=== PATIENT | male | born 1950 | race Caucasian/White ===

== ENCOUNTER 2018-06-15 05:36 | Day surgery (SDC) | payer MEDICARE, OTHER, SELFPAY ==
[2018-06-15 06:17] VITALS: BP 137/68; PULSE 67; RESP 16; TEMP 37.3; O2SAT 100; BMI 37.1
[2018-06-15 06:41] LABS: Bedside Glucose 158 mg/dL (70-110)
--- NOTE | 2018-06-15 07:21 | PCM.HP.STD ---
Problem List (1) Screening for colon cancer Status: Acute History of Present Illness Date of Admission: 06/15/18 The patient is a 67 year old M who presents for screening colonoscopy. Past Medical History Past Medical History (Chronic Problems): Chronic Problems RYAN (obstructive sleep apnea) (Chronic) Allergies piroxicam [From Feldene] Allergy (Verified 06/15/18 06:10) Rash amlodipine Adverse Reaction (Verified 06/15/18 06:10) Swelling lisinopril Adverse Reaction (Verified 06/15/18 06:10) Other Home Medications: Ambulatory Orders Medication Instructions Recorded Aspirin [Aspirin, Baby] 81 mg PO DAILY@0800 08/21/15 Carvedilol 6.25 mg PO BID 08/21/15 Cholecalciferol (VIT D3) [Vitamin 3,000 unit PO DAILY 08/21/15 D3] Folic Acid 1 mg PO BID 08/21/15 Hydrochlorothiazide 25 mg PO DAILY 08/21/15 Losartan Potassium 100 mg PO DAILY 08/21/15 Metformin [Metformin HCl] 500 mg PO BID 08/21/15 Acetaminophen [Tylenol Tablet] 650 mg PO Q6H PRN PRN #0 tablet 08/24/15 Atorvastatin Calcium [Lipitor] 10 mg PO QHS 06/11/18 Cyanocobalamin [Vitamin B12] 500 mcg PO DAILY@0800 06/11/18 Lysine 1,000 mg PO DAILY 06/11/18 Multivitamin [Multiple Vitamins] 1 each PO DAILY 06/11/18 Cyanocobalamin (Vitamin B-12) 1,000 mcg PO 06/15/18 [Vitamin B-12] Pyridoxine HCl [Vitamin B-6] 100 mg PO DAILY 06/15/18 Vitamin B12 06/15/18 Smoking Status: Never smoker Tobacco Use: Non-smoker - *Family History Maternal History Items: No pertinent history Review of Systems Cardiovascular: Denies: Chest Pain, Chest Pressure, Chest Tightness, Palpitations Respiratory: Denies: Cough, Hemoptysis, Shortness of breath at rest, Shortness of breath upon exertion, Wheezing Gastrointestinal: Denies: Abdominal Pain, Constipation, Diarrhea, Hematemesis, Nausea, Melena, Vomiting VTE Information - Inpt Only VTE Present on Admission: No VTE Mechan Device Prophylaxis: None VTE Pharm Prophylaxis ordered?: No Reason prophylaxis not ordered:: Treatment Not Indicated Patient Problems: Active and Suspected Problems Screening for colon cancer (Acute) - Physical Exam General: Alert, Oriented x3 Lungs: Clear to auscultation Cardiovascular: Regular rate, Regular Rhythm, No murmurs Abdomen: Bowel Sounds Present, Soft, Non Tender, Non-Distended Vital Signs Temp Pulse Resp BP Pulse Ox 99.2 F H 67 16 137/68 H 100 06/15/18 06:17 06/15/18 06:17 06/15/18 06:17 06/15/18 06:17 06/15/18 06:17 Oxygen Delivery Method Room Air Weight: 273 lb 13.026 oz Body Mass Index (BMI) 37.1 POC Glucose 06/15/18 06:30 POC Glucose 158 H Assessment/Plan All Active Problems Screening for colon cancer (Acute) My plan will be to perform a colonoscopy.
[2018-06-15 07:25] VITALS: BP 137/68; BP 92/50; PULSE 62; RESP 16; TEMP 36.6; O2SAT 97
--- NOTE | 2018-06-15 07:27 | OP.ENDO_ITS ---
Patient Name: Daniel Mancuso Procedure Date: 06/15/2018 6:59 AM Date of : 1950 Age: 67 Procedure: Colonoscopy Indications: Screening for colorectal malignant neoplasm Providers: David Palencia MD Referring MD: David Palencia MD Medicines: See the Anesthesia note for documentation of the administered medications Patient Profile: Last Colonoscopy: more than 10 years ago. Complications: No immediate complications. Procedure: Pre-Anesthesia Assessment: - Prior to the procedure, a History and Physical was performed, and patient medications and allergies were reviewed. The patient's tolerance of previous anesthesia was also reviewed. The risks and benefits of the procedure and the sedation options and risks were discussed with the patient. All questions were answered, and informed consent was obtained. Prior Anticoagulants: The patient has taken no previous anticoagulant or antiplatelet agents. ASA Grade Assessment: III - A patient with severe systemic disease. After reviewing the risks and benefits, the patient was deemed in satisfactory condition to undergo the procedure. After I obtained informed consent, the scope was passed under direct vision. Throughout the procedure, the patient's blood pressure, pulse, and oxygen saturations were monitored continuously. The colonoscope was introduced through the anus and advanced to 2 cm into the ileum. The colonoscopy was performed without difficulty. The patient tolerated the procedure well. The quality of the bowel preparation was excellent. Scope In: 7:11:51 AM Scope Withdrawal Time 0 hours 6 minutes 34 seconds Scope Out: 7:20:26 AM Total Procedure Duration Time 0 hours 8 minutes 35 seconds Findings: The entire examined colon appeared normal on direct and retroflexion views. Impression: - The entire examined colon is normal on direct and retroflexion views. - No specimens collected. Recommendation: - Discharge patient to home. - Resume previous diet. - Continue present medications. - Repeat colonoscopy in 10 years for screening purposes. - Return to primary care physician PRN. Procedure Code(s): --- Professional --- G0121, Colorectal cancer screening; colonoscopy on individual not meeting criteria for high risk Diagnosis Code(s): --- Professional --- Z12.11, Encounter for screening for malignant neoplasm of colon CPT copyright 2017 [employer]. All rights reserved. The codes documented in this report are preliminary and upon tool clerk review may be revised to meet current compliance requirements. MD David Grove MD 06/15/2018 7:26:24 AM This report has been signed electronically. Number of Addenda: 0 Note Initiated On: 06/15/2018 6:59 AM
[2018-06-15 07:30] VITALS: BP 137/68; BP 97/47; PULSE 65; RESP 18; O2SAT 96
[2018-06-15 07:34] VITALS: BP 112/59; BP 137/68; PULSE 59; RESP 16; O2SAT 95
[2018-06-15 07:35] VITALS: BP 121/64; BP 137/68; PULSE 69; RESP 16; TEMP 36.6; O2SAT 95
[2018-06-15 07:58] VITALS: BP 137/68
== END 2018-06-15 08:04 | disposition home or self-care (01) ==
LOC: EN 05:38 → AC 05:41
PROVIDERS: Family Provider Internal Medicine; PCP Internal Medicine; Referring Provider Surgery; Visit Provider Surgery
PROC: 0DJD8ZZ Inspection of Lower Intestinal Tract, Via Natural or Artificial Opening Endoscopic (ICD-10-PCS; CPT 45378; principal; 2018-06-15 06:55)
DX: Z12.11 Encounter for screening for malignant neoplasm of colon (principal); G47.33 Obstructive sleep apnea (adult) (pediatric); I10 Essential (primary) hypertension; E78.00 Pure hypercholesterolemia, unspecified
CPT/HCPCS: G0121; 82962; J7120; J1610

== ENCOUNTER 2023-01-25 11:44 | Emergency (ER) | payer MEDICARE, OTHER, SELFPAY ==
[2023-01-25 11:44] VITALS: BP 151/73; PULSE 68; RESP 18; TEMP 36.7; O2SAT 96; BMI 35.8
--- NOTE | 2023-01-25 12:24 | EDS_ITS ---
HPI <LISA Downs - Last Filed: 01/25/23 13:35> History of Present Illness Chief Complaint: Back Narrative Narrative: Patient states he has had right lower back pain off and on for months but it became constant over the last 3 to 4 weeks. There is no radiation. It sometimes feels better after he stretches out and gets going but sometimes seems worse with movement. He seen his PCP twice and tried Celebrex with no relief. He went to urgent care and was prescribed prednisone x5 days with no relief. They told him if its not better to come to the ED. No history of trauma or injury. He has no pain radiating into his buttock or lower extremities. No weakness, tingling, saddle anesthesia or bladder or bowel incontinence. PFSH <LISA Downs - Last Filed: 01/25/23 13:35> [facility] Medical History no medical history Home Medications Losartan Potassium 100 mg PO DAILY 08/21/15 [History Last Taken 06/15/18] aspirin 81 mg chewable tablet 81 mg PO DAILY@0800 08/21/15 [History Last Taken 08/21/15 81 MG] carvedilol 6.25 mg tablet 6.25 mg PO BID 08/21/15 [History Last Taken 06/15/18] cholecalciferol (vitamin D3) 25 mcg (1,000 unit) tablet (Vitamin D3) 3,000 unit PO DAILY 08/21/15 [History Last Taken 08/21/15 3000 UNIT] folic acid 1 mg tablet 1 mg PO BID 08/21/15 [History Last Taken 08/21/15 1 MG] hydrochlorothiazide 12.5 mg capsule 25 mg PO DAILY 08/21/15 [History Last Taken 08/21/15 25 MG] metformin 500 mg tablet 500 mg PO BID 08/21/15 [History Last Taken 08/21/15 500 MG] acetaminophen 325 mg tablet (Tylenol) 650 mg PO Q6H PRN PRN Pain ##0 08/24/15 [Rx Last Taken Unknown] atorvastatin 10 mg tablet 10 mg PO QHS 06/11/18 [History Last Taken Unknown] cyanocobalamin (vitamin B-12) 500 mcg tablet 500 mcg PO DAILY@0800 06/11/18 [History Last Taken Unknown] lysine 1,000 mg tablet 1,000 mg PO DAILY 06/11/18 [History Last Taken Unknown] multivitamin (Multiple Vitamins tablet) 1 ea PO DAILY 06/11/18 [History Last Taken Unknown] Vitamin B12 06/15/18 [History Last Taken Unknown] cyanocobalamin (vitamin B-12) 1,000 mcg tablet (Vitamin B-12) 1,000 mcg PO 06/15/18 [History Last Taken Unknown] pyridoxine (vitamin B6) 50 mg tablet 100 mg PO DAILY 06/15/18 [History Last Taken Unknown] lidocaine 5 % topical patch (Lidoderm) 1 patch topical DAILY #15 ea 01/25/23 [Rx Last Taken Unknown] Allergy/AdvReac Type Severity Reaction Status Date / Time piroxicam [From Feldene] Allergy Rash Verified 01/25/23 11:46 amlodipine AdvReac Swelling Verified 01/25/23 11:46 lisinopril AdvReac Other Verified 01/25/23 11:46 Social History Smoking Status: Never smoker ROS <LISA Downs - Last Filed: 01/25/23 13:35> ROS ED ROS Narrative Constitutional: Negative for fever, chills, malaise. Respiratory: Negative for shortness of breath. GI: Negative for abdominal pain, nausea, vomiting. : Negative for dysuria, hematuria or frequency. Neuro: Negative for motor/sensory dysfunction. Musc: Negative for joint pain, swelling, trauma. EXAM <LISA Downs - Last Filed: 01/25/23 13:35> Physical Exam Narrative Exam Narrative: CONST: Patient sitting in no acute distress. EYES: Normal inspection. NECK: Normal inspection. RESP: No respiratory distress, CTAB. CVS: Regular rate and rhythm, no murmur, no gallop. Back: Normal inspection, no CVA tenderness. Tender over right upper lumbar muscles, no midline spinal tenderness or step-offs. SKIN: Color normal, no rash, warm, dry, intact. EXTREMITIES: 5/5 bilateral hip flexion, knee flexion/extension, DF/PF. Lower extremities have chronic decreased sensation from neuropathy. 2+ DP pulses. Compartments soft. No swelling or skin changes. NEURO: Oriented x4. PSYCH: Normal affect. Const Vital Signs: 01/25/23 11:44 01/25/23 13:35 Temperature 98.1 F Temperature Source Temporal Pulse Rate 68 Respiratory Rate 18 18 Blood Pressure 151/73 H Blood Pressure Mean 99 Pulse Ox 96 Oxygen Delivery Method Room Air <Dr. Jn Vega MD - Last Filed: 01/25/23 14:33> Physical Exam Const Vital Signs: 01/25/23 11:44 01/25/23 13:35 Temperature 98.1 F Temperature Source Temporal Pulse Rate 68 Respiratory Rate 18 18 Blood Pressure 151/73 H Blood Pressure Mean 99 Pulse Ox 96 Oxygen Delivery Method Room Air [facility] <LISA Downs - Last Filed: 01/25/23 13:35> [facility] Narrative Medical decision making narrative: History gathered from: Patient and family member Patient has focal right lumbar pain in the same area over the last few weeks. It is reproducible on exam. There is no midline spinal tenderness or step-offs. Lower extremity motor and pulses intact. Chronic decreased sensation from neuropathy. With no trauma no spinal tenderness there is no indication for lumbar x-rays as I do not think this is a fracture. Consistent with musculoskeletal pain. He was given Toradol and a Lidoderm patch here and I recommended ice, Tylenol, follow-up with his primary care. <Dr. Jn Vega MD - Last Filed: 01/25/23 14:33> [facility] Narrative Medical decision making narrative: History gathered from: Patient and family member Patient has focal right lumbar pain in the same area over the last few weeks. It is reproducible on exam. There is no midline spinal tenderness or step-offs. Lower extremity motor and pulses intact. Chronic decreased sensation from neuropathy. With no trauma no spinal tenderness there is no indication for lumbar x-rays as I do not think this is a fracture. Consistent with musculoskeletal pain. He was given Toradol and a Lidoderm patch here and I recommended ice, Tylenol, follow-up with his primary care. I have personally performed a face to face assessment of the patient and have reviewed the DUSTIN Note. I performed a substantive portion of the visit including all aspects of the following. My buck findings include: History is remarkable for right lower back pain for some time. Is intermittent. Is worse with movement. He denies bowel bladder dysfunction. No saddle pares thesia or anesthesia. Nuys radicular pain. Denies foot drop. Denies buckling of his knees going up or down steps. There is no history of trauma. He has no urologic symptoms. He denies weight gain or weight loss. He has no history of malignancy. Exam is remarkable for pain to palpation and with movement. Straight leg test is negative right and left. Patella and ankle reflex are 1+. His sensation is abnormal in his feet due to neuropathy. His sensation in his legs for L3, L4-L5 dermatome are unremarkable. DP pulses palpable. There is no clonus or Babinski sign noted. EHLs intact. 5/5 strength plantar dorsiflexion of the foot. However 5 strength flexion at the knee and extension at the knee. He has no midline pain. He has normal sensation in the gluteal area. Medical Decision Making patient has muscular pain. Since he has had pain only for couple of weeks and there is no history of trauma imaging nor laboratory work is indicated. Other additions or changes: [id number] oral analgesics for pain control and follow-up with his doctor Discharge Plan Triage Chief Complaint: Back ED Midlevel Provider: Jeniffer Davis ED Provider: Jn Vega Dx/Rx/DC Orders Clinical Impression: Musculoskeletal back pain Instructions: Anatomy of a Normal Spine Prescriptions: New lidocaine [Lidoderm] 5 % adhesive patch,medicated 1 patch topical DAILY Qty: 15 0RF Rx Instructions: leave on most painful area for up to 12 hrs No Action metformin 500 MG tablet 500 mg PO BID Label Comments: carvedilol 6.25 MG tablet 6.25 mg PO BID Label Comments: hydrochlorothiazide 12.5 MG capsule 25 mg PO DAILY Label Comments: aspirin 81 MG tablet,chewable 81 mg PO DAILY@0800 folic acid 1 MG tablet 1 mg PO BID Label Comments: cholecalciferol (vitamin D3) [Vitamin D3] 1,000 UNIT tablet 3,000 unit PO DAILY Losartan Potassium 100 MG tablet 100 mg PO DAILY Label Comments: acetaminophen [Tylenol] 325 MG tablet 650 mg PO Q6H PRN PRN (Reason: Pain) Qty: 0 0RF multivitamin [Multiple Vitamins] 1 EACH tablet 1 ea PO DAILY lysine 1,000 MG tablet 1,000 mg PO DAILY cyanocobalamin (vitamin B-12) 500 MCG tablet 500 mcg PO DAILY@0800 atorvastatin 10 MG tablet 10 mg PO QHS cyanocobalamin (vitamin B-12) [Vitamin B-12] 1,000 MCG tablet 1,000 mcg PO pyridoxine (vitamin B6) 50 MG tablet 100 mg PO DAILY Vitamin B12 Primary Care Provider: Yumi Novak Referrals: Yumi Novak MD [Primary Care Provider] - Activity Restrictions/Additional Instructions: I think this is musculoskeletal back pain and recommend lidocaine patches, ice, Tylenol Motrin. Disposition Disposition: Home, Self Care Discharge Date/Time: 01/25/23 13:36
[2023-01-25] MEDS: Ketorolac 15 MG/ML Vial IM (12:36)
[2023-01-25] MEDS: Lidocaine 5% Patch 1 PATCH TOPICAL (12:36)
[2023-01-25 13:35] VITALS: RESP 18
== END 2023-01-25 13:36 | disposition home or self-care (01) ==
PROVIDERS: Emergency Provider Emergency Medicine; PCP Internal Medicine; Visit Provider Emergency Medicine
DX: M54.50 Low back pain, unspecified (principal)
CPT/HCPCS: 96372; 99282